=== PATIENT | female | born 1975 | race Hispanic/Latino ===

== ENCOUNTER 2020-05-01 09:32 | Emergency (ER) | payer OTHER ==
[~2020-05-01] VITALS: Ht 154.9 cm; Wt 86.2 kg
[2020-05-01] MEDS ORDERED: HYDROCODONE/APAP 7.5MG-325MG 1 EA TAB PO ONE ×2 (09:45→14:45)
--- NOTE | 2020-05-01 09:58 | Emergency Department Note ---
History of Present Illnes History of Present Illness Chief Complaint: Extremity Trauma/Pain History of Present Illness This is a 45 year old female FELL DOWN STAIRS, WHILE HOLDING ON TO RAILING. HIT RIGHT ANKLE/FOOT ON STAIRS. PAIN WITH PALPATION TO ANKLE, AND TOES. SWELLING, REDNESS TO ANKLE POSITIVE PULSE, COOL TO TOUCH FROM PREVIOUS ICE PACK. Historian: Patient Arrival Mode: Car Additional Treatment CREDIT PORTFOLIO MANAGER: ADVIL X 2, ICEPACK [employer] Required: No Onset (how long ago): hour(s) Location: RIGHT FOOT/ANKLE Quality: PAIN Radiation: Reports non-radiation Severity: severe Onset quality: sudden Timing of current episode: constant Progression: unchanged (2) Chronicity: new Context: Reports trauma/injury Relieving factors: none Exacerbating factors: none Associated symptoms: Reports denies other symptoms Treatments prior to arrival: none Past Medical/Family History Physician Review I have reviewed the patient's past medical and family history. Any updates have been documented here. Past Medical History Recent Fever: No Clinical Suspicion of Infectio: No New/Unexplained Change in Ment: No Past Medical History: Hypertension, Asthma Past Surgical History: None Social History Smoking Cessation: Never Smoker Counseling Performed: No Alcohol Use: None Any Illegal Drug Use: No TB Exposure/Symptoms: No Physically hurt or threatened: No Family History Family history of heart diseas: No Other Any Pre-Existing Lines (PICC,: No Review of Systems Review of Systems Constitutional: Reports no symptoms EENTM: Reports no symptoms Cardiovascular: Reports no symptoms Respiratory: Reports no symptoms Gastrointestinal: Reports no symptoms Genitourinary: Reports no symptoms Musculoskeletal: Reports as per HPI Integumentary: Reports no symptoms Neurological: Reports no symptoms Psychological: Reports no symptoms Endocrine: Reports no symptoms Hematological/Lymphatic: Reports no symptoms Physical Exam Related Data Allergies: Coded Allergies: No Known Allergies (Unverified , 05/01/20) Triage Vital Signs Vital Signs Date Time Temp Pulse Resp B/P (MAP) Pulse Ox O2 Delivery O2 Flow Rate FiO2 05/01/20 09:36 98.1 62 18 126/95 100 Room Air Vital signs reviewed: Yes Physical Exam CONSTITUTIONAL Constitutional: Present well-developed, Present well-nourished HENT HENT: Present normocephalic, Present atraumatic, Present oropharynx clear/moist, Present nose normal HENT L/R: Present left ext ear normal, Present right ext ear normal EYES Eyes: Reports PERRL, Reports conjunctivae normal NECK Neck: Present ROM normal PULMONARY Pulmonary: Present effort normal, Present breath sounds normal CARDIOVASCULAR Cardiovascular: Present regular rhythm, Present heart sounds normal, Present c apillary refill normal, Present normal rate GASTROINTESTINAL Abdominal: Present soft, Present nontender, Present bowel sounds normal GENITOURINARY Genitourinary: Present exam deferred SKIN Skin: Present warm, Present dry MUSCULOSKELETAL Musculoskeletal: Present tenderness (DORSUM RIGHT FOOT & RIGHT ANKLE), Present swelling; Absent deformity NEUROLOGICAL Neurological: Present alert, Present oriented x 3, Present no gross motor or sensory deficits PSYCHOLOGICAL Psychological: Present mood/affect normal, Present judgement normal Results Imaging Imaging results reviewed: Yes Impressions EXAMINATION: FOOT RIGHT COMPLETE INDICATION: Trauma COMPARISON: None FINDINGS: Acute mildly displaced trimalleolar right ankle fracture with associated right ankle soft tissue swelling. Fracture lines extend to the joint space. Associated ankle joint effusion. No additional fractures identified in the right foot. IMPRESSION: Acute mildly displaced trimalleolar right ankle fracture with intra-articular extension and associated soft tissue swelling and ankle joint effusion. Signed by: Brayden Shah MD on 05/01/2020 11:07 AM Assessment & Plan Medical Decision Making MDM FALL, WITH RIGHT FOOT/ANKLE SWELLING AND TENDERNESS - CHECK XRAYS R/O FX Reassessment Reassessment SPLINT APPLIED, DC HOME, NWB/CRUTCHES, RICE, TYL #3, IBUPROFEN OTC, F/U DR JUSTIN Assessment & Plan Final Impression: (1) Trimalleolar fracture of right ankle Depart Disposition: HOME, SELF-CARE Last Vital Signs Date Time Temp Pulse Resp B/P (MAP) Pulse Ox O2 Delivery O2 Flow Rate FiO2 05/01/20 09:36 98.1 62 18 126/95 100 Room Air Medications in the ED Acetaminophen/ Hydrocodone Bitart 1 ea NOW ONCE PO Last administered on 05/01/20at 09:52; Admin Dose 1 EA; Start 05/01/20 at 09:45; Stop 05/01/20 at 09:51; Status DC JAH ARNOLD MD May 01, 2020 09:58
--- OUTSIDE RECORDS SUMMARY | 2020-05-01 10:12 | XMS REPORT | Continuity of Care Document ---
Author Author [facility] t Organization [facility] Address [address] [place] [address] Phone Unavailable Care Team Providers Care Neonatologist Name Role Phone Unavailable Unavailable Payers Payer Name Policy Type Policy Number Effective Date Expiration Date S ource Problems This patient has no known problems. Allergies, Adverse Reactions, Alerts Allergy Name Allergy Type Status Severity Reaction(s) Onset Date Inacti ve Date Treating Clinician Comments Source No Known Contrast Allergies DA Active 2008-06-08 00:00: 00 [facility] No Known Drug Allergies DA Active U 2008-06-08 00:00:00 [facility] No Known Food Allergies DA Active U 2008-06-08 00:00:00 [facility] No Known Other Allergies DA Active 2008-06-08 00:00:00 [facility] Medications This patient has no known medications. Procedures This patient has no known procedures. Results Test Description Test Time Test Comments Results Result Comments Source SURGICAL SPECIMENS 2018-06-28 12:06:00 RUN DATE: 06/28/18 [facility] *LIVE* PAGE 1 RUN TIME: 1206 Specimen Inquiry RUN USER: INTERFACE PATIENT: JIA REN LOC: [facility] U #: [id number] AGE/SX: 43/F ROOM: RE06/19/[facility] DR: Ariana Mayorga : 73 BED: DIS: STATUS: DEP REF TLOC: SPEC #: [id number] RECD: 06/20/18 STATUS: MEHDI RANDLE #: [id number] CLAUDIA: 06/20/18 [facility] DR: Ariana Mayorga MD ENTERED: 06/27/18 SP TYPE: SURG SPEC OTHR DR: ORDERED: GM LEVEL 4 CODES: [id number] - BREAST, NOS PROCEDURES: GM LEVEL 4 (Incomplete) TISSUES: 1. BREAST, NOS - Breast, right, 12:00, 6 cm FN, core bx. 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 GROSS AND MICROSCOPIC GROSS EXAMINATION: Location: Breast, right, 12:00, 6 cm FN, core bx.. Dimensions and appearance: 1.3 x 0.3 x 0.3 cm, fibrofatty. Sections: Entirely submitted. Received in formalin are the above designated biopsies. They are composed of yellow-white fibrofatty tissue. They are submitted for microscopic examination as indicated above. MICROSCOPIC EXAMINATION: Sections of the "Breast, right, 12:00, 6 cm FN, core bx." reveal changes of a fibroadenoma. No definite evidence of ADH, DCIS, LCIS, or invasive carcinoma is seen in these sections. POST-OP DIAGNOSIS ULTRACLIP-coil PRE-OP DIAGNOSIS Indeterminate mass 1.6 cm exclude cancer Signed SIGNATURE ON FILE Stacy Alcantar MD 06/28/18 1206 END OF REPORT
--- NOTE | 2020-05-01 10:38 | Diagnostic Imaging Report ---
EXAMINATION: FOOT RIGHT COMPLETE INDICATION: Trauma COMPARISON: None FINDINGS: Acute mildly displaced trimalleolar right ankle fracture with associated right ankle soft tissue swelling. Fracture lines extend to the joint space. Associated ankle joint effusion. No additional fractures identified in the right foot. IMPRESSION: Acute mildly displaced trimalleolar right ankle fracture with intra-articular extension and associated soft tissue swelling and ankle joint effusion. Signed by: Brayden Shah MD on 05/01/2020 10:35 AM
--- NOTE | 2020-05-01 12:17 | NUR ---
Ankle stirrup and reinforced posterior splint applied to R lower leg. Sensatio intact to toes, cap refill <3 seconds.
--- NOTE | 2020-05-01 12:28 | NUR ---
Dr. Bowers at bedside.
[2020-05-01 13:21] VITALS: BP 133/82
[2020-05-01] MEDS ORDERED: HYDROCODONE/APAP 7.5MG-325MG 1 EA TAB ONE (14:42)
--- NOTE | 2020-05-01 14:44 | Diagnostic Imaging Report ---
TECHNIQUE: Computed tomography imaging of the RIGHT ANKLE was performed WITHOUT injected contrast. Dose modulation, iterative reconstruction, and/or weight based adjustment of the mA/kV was utilized to reduce the radiation dose to as low as reasonably achievable. COMPARISON: None available. HISTORY: Fall, pain FINDINGS: Multiple fractures: * Intra-articular pilon fracture of the posterior distal tibia with approximately 2 mm displacement at the articular surface * Oblique fracture of the distal fibula with 3 mm displacement * Transverse fracture of the medial malleolus with 4 mm displacement Soft tissue swelling of the ankle. The tendons are in normal anatomic position. IMPRESSION: Fractures of the distal tibia and fibula as above Signed by: Dr. Ramy Devine M.D. on 05/01/2020 2:40 PM
--- NOTE | 2020-05-01 19:11 | NUR ---
ORTHOPEDICS CONSULTATION 45 year old community ambulating female presents to the ED after a mechanical fall down the stairs with complaints of only right ankle pain and an inability to ambulate. No numbness, paresthesias or loss of distal motor function. No pain in any other extremity PMdHx: Asthma, HTN Allergies: NKDA SurgHx: Novasure FamHx: Non-contributory SocHx: Neg Tob, EtOH & Drugs AVSS Right Ankle - No open lesions or sores TTP of medial & lateral malleolus Swollen Motor+ EHL, EDL, FHL, FDL Sensation grossly intact Pulses + DP, Post tib Compartments soft Xrays & CT Comminuted Intra-articular fracture of the distal tibia & fibula 45 year old female with Right Pilon & Distal Fibula Fracture -Nurse splinted fracture -Analgesics PRN -NWB RLE -Rest, Ice & Elevation -Follow up with me or Dr. Edgar Cedillo within 1 week to coordinate surgical intervention -Patient aware and amendable to plan. All questions answered. Thank you for the consultation Татьяна Pereira,
[2020-05-05] MEDS ORDERED: TYLENOL # 31 EA PO (16:07)
[2020-05-05] MEDS ORDERED: LISINOPRIL10 MG PO (16:07)
== END 2020-05-01 14:50 | disposition home or self-care (01) ==
LOC: ER 09:43
DX: S82.851A Displaced trimalleolar fracture of right lower leg, initial encounter for closed fracture (principal); W10.8XXA Fall (on) (from) other stairs and steps, initial encounter; Y93.01 Activity, walking, marching and hiking; Y92.008 Other place in unspecified non-institutional (private) residence as the place of occurrence of the external cause; I10 Essential (primary) hypertension; J45.909 Unspecified asthma, uncomplicated
CPT/HCPCS: 99284

== ENCOUNTER → 2020-05-08 | Day surgery (SDC) | payer OTHER ==
[~2020-05-08] MED LIST: BUPIVACAINE HCL 0.5% INJ 30 ML VIAL INJ ONE; CEFAZOLIN SOD 1 GM/NS 50ML 100 ML IV ONE; DEXAMETHASONE SOD PHOS INJ 4 MG/ML VIAL ONE; EPINEPHRINE HCL 1:1000 1ML 1 MG/ML AMP ONE; HYDROMORPHONE 1MG/1ML INJ ONE; IBUPROFEN 800MG/ 200ML 200 ML IV ONE; LIDOCAINE HCL 2% LOCAL INJ 5 ML SDV VIAL INJ ONE; LISINOPRIL10 MG PO; ONDANSETRON HCL INJ 2MG/ML 2ML 2 MG/ML VIAL ONE; PROPOFOL IV EMULSION 10 MG/ML 20 ML VIAL ONE; ROCURONIUM BROMIDE 10 MG/ML 5ML VIAL IV ONE; SEVOFLURANE INHAL SOLN 250 ML PEN BTL ONE; TYLENOL # 31 EA PO; VANCOMYCIN HCL 1 GM VIAL ONE
--- NOTE | 2020-05-08 18:33 | NUR ---
PREOPERATIVE DIAGNOSIS:Right Distal Tibia Pilon Fracture & Distal Fibula Fracture POSTOPERATIVE DIAGNOSIS:Right Distal Tibia Pilon Fracture & Distal Fibula Fracture PROCEDURE PERFORMED: Open reduction and internal fixation of Right Distal Tibia Pilon Fracture & Distal Fibula Fracture Flouroscopic Interpretation SURGEONS: 1. Edgar Cedillo MD, 2. Татьяна Pereira DO ANESTHESIA: General. TOURNIQUET TIME: 144 minutes. COMPLICATIONS: None. BLOOD LOSS:20 cc INDICATIONS FOR SURGERY: This is 45 year old female who had a mechanical fall and was found to have a displaced right ankle fracture. OPERATIVE PROCEDURE: The patient was taken to the operative room where general anesthesia was successfully introduced. The right ankle was prepped and draped i n standard fashion. The tourniquet was applied about the right upper thigh. An Esmarch tourniquet was used to exsanguinate the ankle. The tourniquet was insufflated to a pressure 300mm for approximately 144 minutes. A medial incision was used and the posterior border of the tibia was seen. The fracture fragments were opened & debrided. After irrigation and adequate reduct ion under flouroscopic interpretation a Eve 6 hole 2.7 mm Plate and screws was used in antiglide fashion to secure the posterior articular fragment. The medial malleolus was exposed with care to avoid the saphenous vessel and nerve. An elevator was used to expose the fracture. The fracture was freed of old hematoma and reduced with a reducing clamp. 1 4.0 Cannulated Screws (40 mm) were used to fixate the medial malleolus. 500 mg of Vancomycin powder was sprinkled over the wound. The medial retinaculum was repaired and the fascia and subcutaneous tissue was closed with vicryl. The skin was closed with nylon. An incision was made over the lateral distal fibula with care was taken to spare overlying nerves and vessels. An elevator was used to expose the fracture. The fracture was freed of old hematoma and reduced with a reducing clamp. A locking Eve Variax 3 hole distal fibula plate was placed on the lateral fibula with the use of 3.5 Non-Locking Screws and 3.5 Locking Screws. Due to la xity of the syndesmosis a syndesmotic screw was placed to maintain reduction. Excellent stability of fracture was achieved. Final fluoroscopy showed a reduction to be anatomic. Stress views were obtained with intraoperative cotton and external rotation tests demonstrating no instability of the syndesmosis. The wound was irrigated with copious amounts of normal saline. Deep tissue was closed with 0 Vicryl with the subcutaneous tissue being closed with 2-0 vicryl. The skin was approximated with 3-0 Monocryl . Dressings with xeroform, 4x4s and ABD were applied. The patient was then placed in a well padded trilaminar splint. She awoke without difficulty and was transferred to the recovery room in stable condition.
[2020-05-08 18:45] VITALS: BP 132/84
== END | disposition home or self-care (01) ==
LOC: OR 10:25
PROVIDERS: ATTEND Orthopaedic Surgery
DX: S82.831A Other fracture of upper and lower end of right fibula, initial encounter for closed fracture (principal); S82.871A Displaced pilon fracture of right tibia, initial encounter for closed fracture; J45.909 Unspecified asthma, uncomplicated; I10 Essential (primary) hypertension; W19.XXXA Unspecified fall, initial encounter; Z01.810 Encounter for preprocedural cardiovascular examination; Z01.812 Encounter for preprocedural laboratory examination; Z11.59 Encounter for screening for other viral diseases
CPT/HCPCS: 27828; 76000; 81025; 93005; C1713 ×13; J0171; J0690; J1100; J1170; J2001; J2405; J2704; J3370; U0002

== ENCOUNTER 2020-06-21 11:10 | Inpatient (IN) | payer OTHER ==
[~2020-06-21] VITALS: Ht 154.9 cm; Wt 88.5 kg
[~2020-06-21 11:10] MED LIST changes: -BUPIVACAINE HCL 0.5% INJ 30 ML VIAL INJ ONE; -CEFAZOLIN SOD 1 GM/NS 50ML 100 ML IV ONE; +CEFEPIME 1GM/NS 0.9% 50 ML 50 ML IV SCH; -DEXAMETHASONE SOD PHOS INJ 4 MG/ML VIAL ONE; -EPINEPHRINE HCL 1:1000 1ML 1 MG/ML AMP ONE; -HYDROMORPHONE 1MG/1ML INJ ONE; -IBUPROFEN 800MG/ 200ML 200 ML IV ONE; -LIDOCAINE HCL 2% LOCAL INJ 5 ML SDV VIAL INJ ONE; -ONDANSETRON HCL INJ 2MG/ML 2ML 2 MG/ML VIAL ONE; -PROPOFOL IV EMULSION 10 MG/ML 20 ML VIAL ONE; -ROCURONIUM BROMIDE 10 MG/ML 5ML VIAL IV ONE; -SEVOFLURANE INHAL SOLN 250 ML PEN BTL ONE; -VANCOMYCIN HCL 1 GM VIAL ONE
[2020-06-21] MEDS ORDERED: ONDANSETRON HCL INJ 2MG/ML 2ML 2 MG/ML VIAL IV STA (11:14)
[2020-06-21] MEDS ORDERED: SODIUM CHLORIDE 0.9% 1000ML 1,000 ML IV STA (11:14)
[2020-06-21] MEDS ORDERED: MORPHINE SULFATE INJ 4 MG/ML INJ 1ML IV PRN ×2 (11:15→15:15)
--- OUTSIDE RECORDS SUMMARY | 2020-06-21 11:41 | XMS REPORT | Continuity of Care Document ---
Author Author [facility] t Organization [facility] Address [address] [place] [address] Phone Unavailable Care Team Providers Care Casting Plug Assembler Name Role Phone Brennen BENITO PCP Mehdi ARNOLD Attphys Unavailable Payers Payer Name Policy Type Policy Number Effective Date Expiration Date Ana Smith o [id number] 2016 00:00:00 [facility] Problems Condition Name Condition Details Condition Category Status Onset Date Resolution Date Last Treatment Date Treating Clinician Comments Source Trimalleolar fracture of right ankle Problem Active [facility] Allergies, Adverse Reactions, Alerts Allergy Name Allergy Type Status Severity Reaction(s) Onset Date Inacti ve Date Treating Clinician Comments Source No Known Contrast Allergies DA Active U 2008-06-08 00:00: 00 [facility] No Known Drug Allergies DA Active U 2008-06-08 00:00:00 [facility] No Known Food Allergies DA Active U 2008-06-08 00:00:00 [facility] No Known Other Allergies DA Active U 2008-06-08 00:00:00 [facility] Social History Social Habit Start Date Stop Date Quantity Comments Source Sex Assigned At 1975 00:00:00 1975 00:00:00 Female [facility] Medications This patient has no known medications. Vital Signs Vital Name Observation Time Observation Value Comments Source Weight 2020-05-01 09:36:00 190 [lb_av] [facility] BMI (Body Mass Index) 2020-05-01 09:36:00 35.9 kg/m2 [facility] Procedures Procedure Date / Time Performed Performing Clinician Sour e CT extremity lower wo contrast 2020-05-01 00:00:00 [facility] Results Test Description Test Time Test Comments Results Result Comments Source CT ANKLE RIGHT WO 2020-05-01 14:30:00 [facility] [address] [address] Patient Name: JIA REN MR #: [id number] : 1975 Age/Sex: 45/F Req #: [id number] Adm Physician: Ordered by: JAH ARNOLD MD Report #: [id number] Location: ER Room/Bed: Procedure: [id number] CT/CT ANKLE RIGHT WO Exam Date: 05/01/20 Exam Time: 1414 REPORT STATUS: Signed TECHNIQUE: Computed tomography imaging of the RIGHT ANKLE was performed WITHOUT injected contrast. Dose modulation, iterative reconstruction, and/or weight based adjustment of the mA/kV was utilized to reduce the radiation dose to as low as reasonably achievable. COMPARISON: None available. HISTORY: Fall, pain FINDINGS: Multiple fractures: * Intra-articular pilon fracture of the posterior distal tibia with approximately 2 mm displacement at the articular surface * Oblique fracture of the distal fibula with 3 mm displacement * Transverse fracture of the medial malleolus with 4 mm displacement Soft tissue swelling of the ankle. The tendons are in normal anatomic position. IMPRESSION: Fractures of the distal tibia and fibula as above Signed by: Dr. Alida Tijerina M.D. on 05/01/2020 2:40 PM Dictated By: ALIDA TIJERINA MD 39 Transcribed By: CHARLOTTE on 05/01/20 144 COPY TO: JAH ARNOLD MD ANKLE 3 + VIEWS RIGHT 2020-05-01 10:56:00 [place] [address] Patient Name: JIA REN MR #: [id number] : 1975 Age/Sex: 45/F Req #: [id number] [facility] Physician: Ordered by: JAH ARNOLD MD Report #: [id number] Location: ER Room/Bed: Procedure: [id number] DX/ANKLE 3 + VIEWS RIGHT Exam Date: 05/01/20 Exam Time: 1010 REPORT STATUS: Signed EXAMINATION: FOOT RIGHT COMPLETE INDICATION: Trauma COMPARISON: None FINDINGS: Acute mildly displaced trimalleolar right ankle fracture with associated right ankle soft tissue swelling. Fracture lines extend to the joint space. Associated ankle joint effusion. No additional fractures identified in the right foot. IMPRESSION: Acute mildly displaced trimalleolar right ankle fracture with intra-articular extension and associated soft tissue swelling and ankle joint effusion. Signed by: Marcelina Shah MD on 05/01/2020 11:07 AM Dictated By: MARCELINA SHAH MD 1107 T ranscribed By: CHARLOTTE on 05/01/20 110 COPY TO: JAH ARNOLD MD FOOT RIGHT COMPLETE 2020-05-01 10:30:00 [place] [address] Patient Name: JIA REN MR #: [id number] : 1975 Age/Sex: 45/F Req #: [id number] Adm Physician: Ordered by: JAH ARNOLD MD Report #: [id number] Location: ER Room/Bed: Procedure: [id number] DX/FOOT RIGHT COMPLETE Exam Date: 05/01/20 Exam Time: 1010 REPORT STATUS: Signed EXAMINATION: FOOT RIGHT COMPLETE INDICATION: Trauma COMPARISON: None FINDINGS: Acute mildly displaced trimalleolar right ankle fracture with associated right ankle soft tissue swelling. Fracture lines extend to the joint space. Associated ankle joint effusion. No additional fractures identified in the right foot. IMPRESSION: Acute mildly displaced trimalleolar right ankle fracture with intra-articular extension and associated soft tissue swelling and ankle joint effusion. Signed by: Marcelina Shah MD on 05/01/2020 10:35 AM Dictated By: MARCELINA SHAH MD 1035 Tra nscribed By: CHARLOTTE on 05/01/20 1035 COPY TO: JAH ARNOLD MD SURGICAL SPECIMENS 2018-06-28 12:06:00 RUN DATE: 06/28/18 [facility] *LIVE* PAGE 1 RUN TIME: 1206 Specimen Inquiry RUN USER: INTERFACE PATIENT: JIA REN LOC: [facility] U #: [id number] AGE/SX: 43/F ROOM: RE06/19/18[facility] DR: Ariana Mayorga : 73 BED: DIS: STATUS: [facility] REF TLOC: SPEC #: [id number] RECD: 06/20/18 STATUS: MEHDI RE #: [id number] CLAUDIA: 06/20/18 [facility] DR: Ariana Mayorga MD ENTERED: 06/27/18 SP TYPE: SURG SPEC OTHR DR: ORDERED: GM LEVEL 4 CODES: [id number] - BREAST, NOS PROCEDURES: GM LEVEL 4 (Incomplete) TISSUES: 1. BREAST, NOS - Breast, right, 12:00, 6 cm FN, core bx. FINAL DIAGNOSIS Breast, ri ght, 12:00, 6 cm FN, core bx.: Fibroadenoma. [...]
[2020-06-21 12:04] LABS: BASOPHILS % 0.2 % (0.0-1.0); EOSINOPHILS # (AUTO) 0.4 (0.0-0.4); EOSINOPHILS % 3.8 % (0.0-6.0); HEMATOCRIT 39.8 % (34.2-44.1); HEMOGLOBIN 12.7 g/dL (12.0-16.0); LYMPHOCYTES # (AUTO) 0.2 (1.0-3.2); LYMPHOCYTES % 1.8 % (18.0-39.1); MEAN CORPUSCULAR HEMOGLOBIN 28.2 pg (28-32); MEAN CORPUSCULAR HGB CONC 31.9 g/dL (31-35); MEAN CORPUSCULAR VOLUME 88.2 fL (81-99); MONOCYTES # (AUTO) 0.3 (0.2-0.8); NEUTROPHILS # (AUTO) 8.7 (2.1-6.9); NEUTROPHILS % 90.7 % (38.7-80.0); PLATELET COUNT 246 x10e3/uL (140-360); RED BLOOD COUNT 4.51 x10e6/uL (3.6-5.1); RED CELL DISTRIBUTION WIDTH 13.8 % (11.7-14.4)
[2020-06-21 12:20] LABS: CLARITY,URINE SL CLOUDY (CLEAR); COLOR,URINE YELLOW (YELLOW)
[2020-06-21 12:21] LABS: LEUKOCYTE ESTERASE ,URINE TRACE (NEGATIVE); NITRITE,URINE NEGATIVE (NEGATIVE)
[2020-06-21 12:22] LABS: KETONES,URINE 1+ (NEGATIVE); PROTEIN,URINE DIPSTICK 2+ (NEGATIVE)
[2020-06-21 12:23] LABS: ALANINE AMINOTRANSFERASE 488 IU/L (0-55); ALBUMIN 3.7 g/dL (3.5-5.0); ALBUMIN/GLOBULIN RATIO 1.1 (0.8-2.0); ALKALINE PHOSPHATASE 196 IU/L (40-150); ANION GAP 18.1 mmol/L (8-16); BILIRUBIN,URINE LARGE (NEGATIVE); BLOOD UREA NITROGEN 13 mg/dL (7-26); BUN/CREATININE RATIO 16 (6-25); CALCIUM 9.6 mg/dL (8.4-10.2); CARBON DIOXIDE 22 mmol/L (22-29); CHLORIDE 100 mmol/L (98-107); CREATINE KINASE 38 IU/L (29-168); CREATININE, SERUM 0.79 mg/dL (0.57-1.11); EST GLOMERULAR FILTRATION RATE > 60 ML/MIN (60-); GLUCOSE 170 mg/dL (74-118); POTASSIUM 3.1 mmol/L (3.5-5.1); SODIUM 137 mmol/L (136-145); URINE UROBILINOGEN 8 mg/dL (0.2 - 1)
[2020-06-21 12:24] LABS: PREGNANCY TEST, URINE NEGATIVE (NEGATIVE)
[2020-06-21 12:32] LABS: RBC,URINE 0-5 /HPF (0-5)
[2020-06-21 12:33] LABS: BACTERIA,URINE RARE /HPF; EPITHELIAL CELLS,URINE FEW /LPF
--- NOTE | 2020-06-21 12:50 | Emergency Department Note ---
History of Present Illnes History of Present Illness Chief Complaint: Flank Pain History of Present Illness This is a 45 year old female arrives to the ED with complaints of dysur ia, fever nausea and worsening back pain. Patient states she was diagnosed with UTI and started Macrobid of her symptoms are worsening. . Chief Complaint Comment PT STATES ON MONDAY SHE WENT TO SEE HER PCP D/T BURNING W/URINATION AND WAS DIAGNOSED WITH UTI & PRESCRIBED NITROFURANTOIN. PT STTES THAT SINCE MONDAY, SHE HAS STILL BEEN HAVING BILATERAL FLANK PAIN, CHILLS, AND NAUSEA. Historian: Patient, Significant Other Arrival Mode: Car Severity: mild Timing of current episode: constant Progression: worsening Chronicity: new Relieving factors: none Exacerbating factors: none Past Medical/Family History Physician Review I have reviewed the patient's past medical and family history. Any updates have been documented here. Past Medical History Recent Fever: Yes Clinical Suspicion of Infectio: No New/Unexplained Change in Ment: No Past Medical History: Hypertension, Asthma Past Surgical History: None Other Surgery: PT HAD RIGHT TIBIA SURGERY 05/08/2020 HERE AT [facility] Social History Smoking Cessation: Never Smoker Counseling Performed: No Alcohol Use: None Any Illegal Drug Use: No Physically hurt or threatened: No Other Any Pre-Existing Lines (PICC,: No Physical Exam Related Data Allergies: Coded Allergies: No Known Allergies (Unverified , 05/01/20) Triage Vital Signs Vital Signs Date Time Temp Pulse Resp B/P (MAP) Pulse Ox O2 Delivery O2 Flow Rate FiO2 06/21/20 11:20 98.5 120 16 105/47 100 Room Air Physical Exam CONSTITUTIONAL HENT EYES NECK PULMONARY CARDIOVASCULAR GASTROINTESTINAL GENITOURINARY SKIN MUSCULOSKELETAL NEUROLOGICAL PSYCHOLOGICAL Results Laboratory Laboratory Laboratory Tests Test 06/21/20 11:30 Assessment & Plan Medical Decision Making MDM 45-year-old female arrived to the ED complains of fever, nausea bilateral flank pain. Patient clinically appeared to be presenting with acute pyelonephritis and was treated as such with fluid resuscitation and IV antibiotics. Patient noted marked transaminitis. Patient's CT scan was negative for any acute hepatic, biliary or pancreatic process. Patient's CT showed questionable vaginal cyst, however, patient has no findings in this regard. Patient admitted for trending of liver enzymes, IV antibiotics and fluid resuscitation. PACKAGE DYER- Dr. Huntley consulted Concerns of possible impending severe sepsis noted 1300, blood cultures obtained lactic acid unremarkable Assessment & Plan Final Impression: (1) Pyelonephritis Depart Disposition: ADMITTED Last Vital Signs Date Time Temp Pulse Resp B/P (MAP) Pulse Ox O2 Delivery O2 Flow Rate FiO2 06/21/20 11: 98.5 120 16 105/47 100 Room Air Home Meds Reported Medications Lisinopril (LISINOPRIL) 10 Mg Tablet, 10 MG PO HS, TAB 05/05/20 Acetaminophen/Codeine* (TYLENOL # 3*) 1 Ea Tab, 1 TAB PO PRN 05/05/20 Medications in the ED Ondansetron HCl 4 mg NOW STAT IV Last administered on 06/21/20at 11:45; Admin Dose 4 MG; Start 06/21/20 at 11:14; Stop 06/21/20 at 11:31; Status DC Morphine Sulfate 4 mg ONCE PRN IV SEVERE PAIN (7-10) Last administered on 06/21/20at 11:45; Admin Dose 4 MG; Start 06/21/20 at 11:15; Stop 06/28/20 at 11:14 Sodium Chloride 1,000 ml @ 0 mls/hr Q0M STAT IV Last administered on 06/21/20at 11:45; Admin Dose 999 MLS/HR; Start 06/21/20 at 11:14; Stop 06/21/20 at 11:18; Status DC LATASHA URIBE DO Jun 21, 2020 12:51
--- NOTE | 2020-06-21 13:50 | Diagnostic Imaging Report ---
EXAM: CT Abdomen and Pelvis WITH contrast INDICATION: Nausea vomiting and fever. COMPARISON: None. TECHNIQUE: Abdomen and pelvis were scanned utilizing a multidetector helical scanner from the lung base to the pubic symphysis after administration of IV contrast. Coronal and sagittal reformations were obtained. Routine protocol was performed. Scan was performed when during portal venous phase. IV CONTRAST: 100 mL of Isovue 370 ORAL CONTRAST: None COMPLICATIONS: None RADIATION DOSE: Total DLP: ... mGy*cm Estimated effective dose: (DLP x 0.015 x size factor) mSv CTDIvol has been reviewed. It is below the limits set by the Radiation Protocol Committee (RPC). Dose modulation, iterative reconstruction, and/or weight based adjustment of the mA/kV was utilized to reduce the radiation dose to as low as reasonably achievable. FINDINGS: LINES and TUBES: None. LOWER THORAX: Unremarkable HEPATOBILIARY: No focal hepatic lesions. No biliary ductal dilation. GALLBLADDER: No radio-opaque stones or sludge. No wall thickening. SPLEEN: No splenomegaly. PANCREAS: No focal masses or ductal dilatation. ADRENALS: No adrenal nodules KIDNEYS/URETERS: Kidneys enhance symmetrically. No hydronephrosis. No cystic or solid mass lesions. No stones. GI TRACT: No abnormal distention, wall thickening, or evidence of bowel obstruction. Appendix is normal. PELVIC ORGANS/BLADDER: Unremarkable. LYMPH NODES: No lymphadenopathy. VESSELS: Unremarkable. PERITONEUM / RETROPERITONEUM: No free air or fluid. BONES: Unremarkable. SOFT TISSUES: 1.7 x 1.0 cm cystic hypodense structure in the central lower pelvis, below the level of the symphysis with adjacent focus of hyperattenuation (series 2 image 80-82). There is a fat-containing umbilical hernia. IMPRESSION: 1. No acute abdominopelvic abdomen was identified. 2. 1.7 x 1.0 cm cystic hypodense structure in the central lower pelvis, below the level of the symphysis with adjacent focus of hyperattenuation (series 2 image 80-82). Differential diagnosis includes urethral diverticulum, vaginal wall cyst, [place] gland abscess/cyst or ectopic ureterocele. SENIOR PRODUCT ENGINEER follow-up can be considered for further evaluation and management. Signed by: Glo León MD on 06/21/2020 1:47 PM
[2020-06-21] MEDS ORDERED: CEFEPIME 1GM/NS 0.9% 50 ML 50 ML IV ONE (14:00)
[2020-06-21] MEDS ORDERED: CEFTRIAXONE SOD 1 GM/NS 50 ML 50 ML IV ONE (14:00)
[2020-06-21] MEDS ORDERED: CEFEPIME 1GM/NS 0.9% 50 ML 50 ML IV STA (14:52)
[2020-06-21] MEDS ORDERED: ONDANSETRON HCL INJ 2MG/ML 2ML 2 MG/ML VIAL IV PRN (15:00)
--- OUTSIDE RECORDS SUMMARY | 2020-06-21 15:21 | XMS REPORT | Continuity of Care Document ---
Author Author [facility] t Organization [facility] Address [address] [place] [address] Phone Unavailable Care Team Providers Care Play Reader Name Role Phone Brennen BENITO PCP Ana URIBE Attphys Unavailable Mehdi ARNOLD Attphys Unavailable Payers Payer Name Policy Type Policy Number Effective Date Expiration Date Ana Smith o [id number] 2016 00:00:00 [facility] Problems Condition Name Condition Details Condition Category Status Onset Date Resolution Date Last Treatment Date Treating Clinician Comments Source Trimalleolar fracture of right ankle Problem Active [facility] Allergies, Adverse Reactions, Alerts Allergy Name Allergy Type Status Severity Reaction(s) Onset Date Inacti ve Date Treating Clinician Comments Source No Known Contrast Allergies DA Active U 2008-06-08 00:00: 00 [facility] No Known Drug Allergies DA Active U 2008-06-08 00:00:00 [facility] No Known Food Allergies DA Active U 2008-06-08 00:00:00 [facility] No Known Other Allergies DA Active U 2008-06-08 00:00:00 [facility] Social History Social Habit Start Date Stop Date Quantity Comments Source Sex Assigned At 1975 00:00:00 1975 00:00:00 Female [facility] Medications This patient has no known medications. Vital Signs Vital Name Observation Time Observation Value Comments Source Weight 2020-05-01 09:36:00 190 [lb_av] [facility] BMI (Body Mass Index) 2020-05-01 09:36:00 35.9 kg/m2 [facility] Procedures Procedure Date / Time Performed Performing Clinician [facility] e CT extremity lower wo contrast 2020-05-01 00:00:00 [facility] Results Test Description Test Time Test Comments Results Result Comments Source CT ABDOMEN/PELVIS W 2020-06-21 13:37:00 [facility] [address] [address] Patient Name: JIA REN MR #: [id number] : 1975 Age/Sex: 45/F Req #: [id number] Adm Physician: Ordered by: LATASHA URIBE DO Report #: [id number] Location: ER Room/Bed: Procedure: [id number] CT/CT ABDOMEN/PELVIS W Exam Date: 06/21/20 Exam Time: 1250 REPORT STATUS: Signed EXAM: CT Abdomen and Pelvis WITH contrast INDICATION: Nausea vomiting and fever. COMPARISON: None. TECHNIQUE: Abdomen and pelvis were scanned utilizing a multidetector helical scanner from the lung base to the pubic symphysis after administration of IV contrast. Coronal and sagittal reformations were obtained. Routine protocol was performed. Scan was performed when during portal venous phase. IV CONTRAST: 100 mL of Isovue 370 ORAL CONTRAST: None COMPLICATIONS: None RADIATION DOSE: Total DLP: ... mGy*cm Estimated effective dose: (DLP x 0.015 x size factor) mSv CTDIvol has been reviewed. It is below the limits set by the Radiation Protocol Committee (RPC). Dose modulation, iterative reconstruction, and/or weight based adjustment of the mA/kV was utilized to reduce the radiation dose to as low as reasonably achievable. FINDINGS: LINES and TUBES: None. LOWER THORAX: Unremarkable HEPATOBILIARY: No focal hepatic lesions. No biliary ductal dilation. GALLBLADDER: No radio-opaque stones or sludge. No wall thickening. SPLEEN: No splenomegaly. PANCREAS: No focal masses or ductal dilatation. ADRENALS: No adrenal nodules KIDNEYS/URETERS: Kidneys enhance symmetrically. No hydronephrosis. No cystic or solid mass lesions. No stones. GI TRACT: No abnormal distention, wall thickening, or evidence of bowel obstruction. Appendix is normal. PELVIC ORGANS/BLADDER: Unremarkable. LYMPH NODES: No lymphadenopathy. VESSELS: Unremarkable. PERITONEUM / RETROPERITONEUM: No free air or fluid. BONES: Unremarkable. SOFT TISSUES: 1.7 x 1.0 cm cystic hypodense structure in the central lower pelvis, below the level of the symphysis with adjacent focus of hyperattenuation (series 2 image 80-82). There is a fat- containing umbilical hernia. IMPRESSION: 1. No acute abdominopelvic abdomen was identified. 2. 1.7 x 1.0 cm cystic hypodense structure in the central lower pelvis, below the level of the symphysis with adjacent focus of hyperattenuation (series 2 image 80-82). Differential diagnosis includes urethral diverticulum, vaginal wall cyst, [place] gland abscess/cyst or ectopic ureterocele. TAKE DOWN INSPECTOR follow-up can be considered for further evaluation and management. Signed by: Elida Vargas MD on 06/21/2020 1:47 PM Dictated By: ELIDA VARGAS MD 45 Transcribed By: CHARLOTTE on 06/21/201346 COPY TO: LATASHA URIBE DO CT ANKLE RIGHT WO 2020-05-01 14:30:00 [address] [place] [address] Patient Name: JIA REN MR #: [id number] : 1975 Age/Sex: 45/F Req #: [id number] Adm Physician: Ordered by: JAH ARNOLD MD Report #: [id number] Location: ER Room/Bed: Procedure: [id number] CT/CT ANKLE RIGHT WO Exam Date: 05/01/20 [...] 2:40 PM Dictated By: ALIDA TIJERINA MD 1440 Transcribed By: CHARLOTTE on 05/01/20 1440 COPY TO: JAH ARNOLD MD ANKLE 3 + VIEWS RIGHT 2020-05-01 10:56:00 [address] [address] Patient Name: JIA REN MR #: [id number] : 1975 Age/Sex: 45/F Req #: [id number] Adm Physician: Ordered by: JAH ARNOLD MD Report #: [id number] Location: ER Room/Bed: Procedure: [id number] DX/ANKLE 3 + VIEWS RIGHT Exam Date: [...] on 05/01/2020 11:07 AM Dictated By: MARCELINA SAHH MD 06 T ranscribed By: CHARLOTTE on 05/01/201106 COPY TO: JAH ARNOLD MD FOOT RIGHT COMPLETE 2020-05-01 10:30:00 [place] [address] Patient Name: JIA REN MR #: [id number] : 1975 Age/Sex: 45/F Req #: [id number] Adm Physician: Ordered by: JAH ARNOLD MD Report #: [id number] Location: ER Room/Bed: Procedure: [id number] DX/FOOT RIGHT COMPLETE Exam Date: 05/01/20 Exam [...] SURGICAL SPECIMENS 2018-06-28 12:06:00 RUN DATE: 06/28/18 [facility] *LIVE* PAGE 1 RUN TIME: 1206 Specimen Inquiry RUN USER: INTERFACE PATIENT: JIA REN LAI LOC: [facility] U #: [id number] AGE/SX: 43/F ROOM: RE06/19/18REG DR: Ariana Mayorga : [birth year] BED: DIS: STATUS: DEP REF TLOC: SPEC #: [id number] RECD: 06/20/18 STATUS: MEHDI RANDLE #: [id number] CLAUDIA: 06/20/[address] [facility] [address]: Ariana Mayorga MD ENTERED: 06/27/18 SP TYPE: SURG SPEC OTHR DR: ORDERED: GM LEVEL 4 CODES: [id number] - BREAST, NOS PROCEDURES: GM LEVEL 4 [...] SIGNATURE ON FILE Stacy Alcantar MD 06/28/18 [id number] END OF REPORT
--- NOTE | 2020-06-21 15:24 | NUR ---
MD ORDERED TO GIVE CEFEPIME TOMORROW RATHER THAN TODAY DUE TO PT ALREADY RECEIVED ROCEPHIN WHICH IS SAME CLASS OF DRUGS PER PHARMACY.
[2020-06-21] MEDS: SODIUM CHLORIDE 0.9% 1000ML 1,000 ML IV SCH ×2 (15:41→23:00)
[2020-06-21] MEDS ORDERED: IOPAMIDOL 370 MG/ML 200 ML INFUS..BTL INJ ONE (16:54)
[2020-06-21] MEDS ORDERED: SODIUM CHLORIDE 0.9% 50ML 50 ML ONE (16:54)
--- NOTE | 2020-06-21 17:18 | Diagnostic Imaging Report ---
EXAM: Limited Abdominal Ultrasound (right upper quadrant) INDICATION: Right upper quadrant abdominal pain. COMPARISON: Same day CT abdomen/pelvis. TECHNIQUE: Transverse and longitudinal images of the upper abdomen were obtained. FINDINGS: Liver: Size: 15.9 cm in the right midclavicular line, normal Appearance: Normal echogenicity, smooth contour Mass: No focal masses Gallbladder: Stones/Sludge: None Wall: 0.3 cm Appearance: No pericholecystic fluid or hydrops. Sonographic Patel's Sign: Negative Bile Ducts: Intrahepatic Ducts: No dilatation Extrahepatic Ducts: Common bile duct measures 0.3 cm, no dilatation Pancreas: Not visualized due to overlying bowel gas. Right Kidney: Size: 9.8 x 4.2 x 5.3 cm Echogenicity: Normal Parenchymal thickness: Normal Collecting System: No hydronephrosis Stone: None Cyst/Mass: None Vessels: Aorta: Not visualized due to overlying bowel gas. Inferior Vena Cava: Visualized portions are normal Main Portal Vein: 0.7 cm, normal size with hepatopetal flow. Free Fluid: No ascites or pleural effusion IMPRESSION: Normal abdominal ultrasound. Signed by: Glo León MD on 06/21/2020 5:14 PM
[2020-06-21 17:28] VITALS: BP 104/71
[2020-06-21 17:32] VITALS: BP 104/71
[2020-06-21] MEDS ORDERED: BREO ELLIPTA 11 EACH INH (17:39)
[2020-06-21] MEDS ORDERED: NITROFURANTOIN100 MG PO (17:40)
[2020-06-21] MEDS ORDERED: MELATONIN3 MG PO (17:41)
[2020-06-21 20:10] VITALS: BP 109/71
[2020-06-21 20:34] VITALS: BP 109/71
[2020-06-21 21:00] VITALS: BP 109/71
[2020-06-21] MEDS ORDERED: POTASSIUM CHLORIDE 20 MEQ TAB CR PO STA (23:08)
[2020-06-21] MEDS ORDERED: NON-FORMULARY MEDICATION (Fluticasone/Vilanterol (Breo Ellipta 100-25 Mcg INH) 1 INH) INH PRN (23:15)
[2020-06-21] MEDS ORDERED: MELATONIN 5 MG TABLET PO PRN (23:15)
[2020-06-21] MEDS ORDERED: DOCUSATE SODIUM 100 MG CAP PO PRN (23:15)
[2020-06-21] MEDS ORDERED: TRAMADOL HCL 50 MG TAB PO PRN (23:30)
[2020-06-22] VITALS (10 sets, daily range): BP systolic 100–129; BP diastolic 61–90
--- NOTE | 2020-06-22 01:51 | History and Physical ---
CHIEF COMPLAINT: Dysuria and flank pain. HISTORY OF PRESENT ILLNESS: A 45-year-old female, who recently had a right lower extremity ORIF performed early in May of 2020, having a distal tibia-fibula of the right lower extremity ORIF, presents now with flank pain and dysuria. The patient reports having episodic fever at home, generalized weakness and malaise. Denies any chest pain or any palpitations. No sick contacts. No exposure to COVID. The patient is seen and evaluated at bedside on the medical floor. She is currently doing well with no other issues at this time. REVIEW OF SYSTEMS: Pertinent positives; flank pain, episodic fever, dysuria. The rest of 14-point review of systems have been reviewed with the patient and are negative. ALLERGIES: NO KNOWN DRUG ALLERGIES. HOME MEDICATIONS: Lisinopril, Breo, melatonin. PAST MEDICAL HISTORY: Hypertension. PAST SURGICAL HISTORY: Recent tubia-fibula right lower extremity ORIF. FAMILY HISTORY: Hypertension and diabetes. SOCIAL HISTORY: No drugs. No alcohol. Does not smoke. Good social support. PHYSICAL EXAMINATION: VITAL SIGNS: Temperature is 97.7, pulse 85, respiratory rate is 16. Blood pressure is 109/71, pulse ox 100% on room air. GENERAL: Not in acute distress. Alert and oriented x3. Cooperative on exam. PULMONARY: Clear to auscultation bilaterally. No wheezing, rales, or rhonchi. No crackles appreciated. CARDIOVASCULAR: Positive S1 and S2. No murmurs, rubs, or gallops appreciated. ABDOMEN: Soft, nondistended, nontender to palpation. Bowel sounds present. MUSCULOSKELETAL: Strength 5/5 throughout. LABORATORY DATA: Show white count 9.5, hemoglobin 12, hematocrit is 39, and platelets of 246. Chemistry; sodium 137, potassium 3.1, chloride 100, bicarb 22, anion gap of 18, BUN is 13, creatinine is 0.79, glucose is 170. Lactic acid is 1.2. Total bilirubin is 1.9, AST 388, ALT 488, alkaline phosphatase 196, lipase of 170. Urinalysis; 2+ protein, 1+ glucose, 1+ ketones, 6-10 wbc's. SEROLOGY: Coronavirus is pending. MICROBIOLOGY: Blood cultures are pending. IMAGING STUDIES: Abdominal ultrasound shows a normal ultrasound and normal liver. Gallbladder shows no sludge. CT abdomen and pelvis, no acute abdominopelvic abdomen. There is a 1.7 x 1 cm cystic hypodense structure in the central lower pelvis. REHAB TECHNICIAN was consulted. IMPRESSION: 1. Acute pyelonephritis with underlying urinary tract infection. 2. Elevated transaminases of unknown etiology. 3. Hypokalemia. 4. Recent status post right lower extremity tibia-fibula open reduction and internal fixation. PLAN: At this time, we will make sure that the urine was sent to the lab for cultures. Blood cultures, IV antibiotics. Lovenox for DVT prophylaxis. Resume same home medications. As for the LFT elevation, GI was consulted. Plan of care discussed with the patient. She is supposed to be nonweightbearing. We will continue to monitor very closely. MD LINDA Urias/MOUNAL /[id number]
[2020-06-22] MEDS: CEFEPIME 1GM/NS 0.9% 50 ML 50 ML IV SCH ×2 (02:15→14:24)
[2020-06-22] MEDS ORDERED: MORPHINE SULFATE INJ 4 MG/ML INJ 1ML IV PRN (03:15)
--- NOTE | 2020-06-22 04:04 | NUR ---
spoke to Schuyler in Radiology regarding the presence of metal plates and screws to patient's right leg and the order for MRCP in the morning. Schuyler stated he will make note and if there are any questions someone will call.
[2020-06-22 06:00] LABS: BASOPHILS % 0.6 % (0.0-1.0); EOSINOPHILS # (AUTO) 0.7 (0.0-0.4); EOSINOPHILS % 12.8 % (0.0-6.0); HEMATOCRIT 31.3 % (34.2-44.1); HEMOGLOBIN 10.1 g/dL (12.0-16.0); LYMPHOCYTES % 17.7 % (18.0-39.1); MEAN CORPUSCULAR HEMOGLOBIN 28.9 pg (28-32); MEAN CORPUSCULAR HGB CONC 32.3 g/dL (31-35); MEAN CORPUSCULAR VOLUME 89.4 fL (81-99); MONOCYTES # (AUTO) 0.5 (0.2-0.8); MONOCYTES % 8.5 % (4.4-11.3); NEUTROPHILS # (AUTO) 3.2 (2.1-6.9); NEUTROPHILS % 59.8 % (38.7-80.0); PLATELET COUNT 199 x10e3/uL (140-360); RED CELL DISTRIBUTION WIDTH 13.8 % (11.7-14.4)
[2020-06-22 06:24] LABS: ALANINE AMINOTRANSFERASE 338 IU/L (0-55); ALBUMIN 2.9 g/dL (3.5-5.0); ALBUMIN/GLOBULIN RATIO 1.1 (0.8-2.0); ALKALINE PHOSPHATASE 163 IU/L (40-150); ANION GAP 12.7 mmol/L (8-16); BLOOD UREA NITROGEN 11 mg/dL (7-26); BUN/CREATININE RATIO 19 (6-25); CARBON DIOXIDE 20 mmol/L (22-29); CHLORIDE 108 mmol/L (98-107); CREATININE, SERUM 0.59 mg/dL (0.57-1.11); EST GLOMERULAR FILTRATION RATE > 60 ML/MIN (60-); GLUCOSE 98 mg/dL (74-118); POTASSIUM 3.7 mmol/L (3.5-5.1); SODIUM 137 mmol/L (136-145)
[2020-06-22 06:38] LABS: AMYLASE 30 U/L (25-125); LIPASE 33 U/L (8-78)
[2020-06-22] MEDS ORDERED: GADOBENATE DIMEGLUMINE 1 ML IV ONE (09:21)
[2020-06-22] MEDS ORDERED: SODIUM CHLORIDE 0.9% 50ML 50 ML ONE (09:21)
--- NOTE | 2020-06-22 11:00 | Diagnostic Imaging Report ---
MRCP (magnetic resonance cholangiopancreatography) HISTORY: Abdominal pain Comparison: CT abdomen and pelvis 06/21/2020 Technique: Multiplanar and multisequence MRI images of the abdomen were obtained without and subsequently following the administration of intravenous gadolinium. Three-dimensional reconstructed images of the biliary tree are also reviewed. FINDINGS: The common bile duct appears normal in caliber. No intrahepatic biliary dilation. No pancreatic ductal dilation. No intrinsic or extrinsic defect is identified within the biliary system. The gallbladder demonstrates no intraluminal defect, wall thickening, or pericholecystic fluid. No mass is identified in the region of the ampulla or pancreatic head. Unremarkable appearance of the liver, pancreas, spleen, adrenal glands, and kidneys. The visualized bowel loops appear normal in caliber. No free fluid or lymphadenopathy is seen within the abdomen. Impression: Unremarkable MRCP. Signed by: Avni Abebe MD on 06/22/2020 10:57 AM
[2020-06-22] MEDS: SODIUM CHLORIDE 0.9% 1000ML 1,000 ML IV SCH (12:15)
--- NOTE | 2020-06-22 13:27 | NUR ---
WOUND CARE INITIAL CONSULT FOR 45 YO FEMALE ADMITTED TO [facility] WITH A PRESENT HX OF PYELONEPHRITIS. MARCY 20 ON CONSERVATIVE PUP STATUS AND INTERVENTIONS SURFACE: REGULAR VISCO . LABS: WBC- 5.41 HGB- 10.1 ALBUMIN: 2.4 AaCL3D-3.9 MICRO: BLOOD CULTURE- PENDING. URINE CULTURE- PENDING. MEDS: CEFEPIME SEE Grecia TAMEZ FOR DOSAGE. IMAGING: SKIN ASSESSMENT COMPLETE, PATIENT PRESENTS WITH 1)HEALING SURGICAL INCISION TO RIGHT MEDIAL ANKLE; MEASURING 2CM X 0.1 CM. 100% COVERED IN ESCHAR; NO DRAINAGE; NO S/S OF INFECTION NOTED. 2)HEALED SURGICAL INCISION TO RIGHT LATERAL ANKLE; MEASURING 6 CM. NO DRAINAGE PRESENT. RECOMMENDATIONS: NURSING TO CLEAN RIGHT MEDIAL ANKLE INCISION WITH NORMAL SALINE, PAT DRY WITH 4X4 GAUZE, BACITRACIN OINTMENT TO ESCHAR, COVER WITH ALLEVYN FOAM; PROTECT HEALED SURGICAL INCISION TO RIGHT LATERAL ANKLE WITH A 4X4 GAUZE, SECURE WITH LEELEE BAND AND APPLY POST OP BOOT DAILY. NURSING TO CONTINUE TO MONITOR PATIENT AND KEEP SKIN CLEAN AND FREE FROM STOOL OR IRRITATING MOISTURE AND CONTINUE TO FOLLOW CONSERVATIVE PUP INTERVENTIONS DAILY. NURSING TO CONTINUE ENCOURAGE PT TO REPOSITION SIDE TO SIDE EVERY TWO HOURS AND NEEDED. NURSING TO APPLY REGULAR VISCO PRESSURE MATTRESS. NURSING TO CONTINUE TO OFFLOAD FEET AND HEELS AT ALL TIMES WITH PILLOW SUSPENSION WHEN IN BED. NURSING TO CONTINUE TO ASSIST WITH PT NUTRITIONAL SUPPLEMENTS TO ENSURE PROPER REQUIREMENTS FOR HEALING. NURSING TO RE- CONSULT WOUND CARE NEEDED. Addendum: 06/22/20 at 1330 by Haritha Araiza RN Amended: Links added.
[2020-06-22] MEDS ORDERED: ENOXAPARIN SOD INJ 40 MG/0.4 ML SYR SC SCH (17:00)
--- NOTE | 2020-06-22 19:33 | NUR ---
Received pt in bed awake and alert. No c/o at this time, no s/sx of acute distress noted. Pt bed in low and locked position with call light and personal items within reach. W/C next to bed, pt instructed to call for assistance, verbalized understanding. Bedside report completed, IVF infusing no diff. Will cont to mon pt.
[2020-06-22] MEDS ORDERED: LISINOPRIL 10 MG TAB PO SCH (21:00)
[2020-06-23] MEDS: SODIUM CHLORIDE 0.9% 1000ML 1,000 ML IV SCH (01:28)
[2020-06-23] MEDS: CEFEPIME 1GM/NS 0.9% 50 ML 50 ML IV SCH ×2 (02:00→14:06)
--- NOTE | 2020-06-23 02:47 | Progress Note ---
DATE: 06/22/2020 Medicine Progress Note SUBJECTIVE: The patient doing well today with no complaints. PHYSICAL EXAMINATION: VITAL SIGNS: Temperature 98, pulse 85, respiratory rate 16, blood pressure 129/84, pulse ox 100% on room air. GENERAL: No acute distress. Alert and oriented x3. Cooperative on exam. PULMONARY: Clear to auscultation bilaterally. No wheezing, rales, or rhonchi. No crackles appreciated. CARDIOVASCULAR: Positive S1 and S2. No murmurs, rubs, or gallops appreciated. ABDOMEN: Soft, nondistended, nontender to palpation. Bowel sounds present. MUSCULOSKELETAL: Strength is 5/5 throughout. SKIN: Intact, warm to touch. Good cap refill. LABORATORY DATA: Show white count 5.4, hemoglobin 10, hematocrit 31, platelets of 199. Chemistry; sodium 137, potassium 3.7, chloride 108, bicarb 20, anion gap , BUN is 11, creatinine 0.59, glucose is 98. LFTs are downtrending. Total bilirubin is 1.2, albumin 2.9. Coronavirus not detected. Hepatitis panel pending. MICROBIOLOGY: Blood cultures, no growth. Urine cultures are pending. IMAGING: MRCP found to be normal. IMPRESSION: 1. Acute pyelonephritis with underlying urinary tract infection. 2. Elevated transaminases of unknown etiology. 3. Electrolyte abnormalities. 4. Recent status post lower extremity tibia-fibula open reduction and internal fixation. 5. Vaginosis. PLAN: In terms of the pyelonephritis, continue with IV antibiotics. Pending cultures. LFTs are downtrending. GI has been consulted. MRCP found to be negative. Repeat labs in the morning. Continue with Lovenox for DVT prophylaxis. As for her vaginosis, I spoke with FLOUR MIXER HELPER. The patient can follow up as an outpatient in her office for potential drainage at a later date. She is otherwise doing well with no complaints. She is stable. MD LINDA Urias/MOUNAL /[id number]
[2020-06-23 07:11] LABS: ALANINE AMINOTRANSFERASE 258 IU/L (0-55); ALKALINE PHOSPHATASE 193 IU/L (40-150); ANION GAP 12.5 mmol/L (8-16); BLOOD UREA NITROGEN 9 mg/dL (7-26); BUN/CREATININE RATIO 15 (6-25); CALCIUM 8.4 mg/dL (8.4-10.2); CARBON DIOXIDE 23 mmol/L (22-29); CHLORIDE 107 mmol/L (98-107); CREATININE, SERUM 0.62 mg/dL (0.57-1.11); EST GLOMERULAR FILTRATION RATE > 60 ML/MIN (60-); GLUCOSE 90 mg/dL (74-118); POTASSIUM 3.5 mmol/L (3.5-5.1); SODIUM 139 mmol/L (136-145)
[2020-06-23 07:47] LABS: FERRITIN 193.27 ng/mL (4.63-204.00)
[2020-06-23 08:50] VITALS: BP 136/80
[2020-06-23 08:59] LABS: BASOPHILS % 0.5 % (0.0-1.0); EOSINOPHILS # (AUTO) 0.7 (0.0-0.4); EOSINOPHILS % 12.2 % (0.0-6.0); HEMATOCRIT 32.1 % (34.2-44.1); HEMOGLOBIN 10.1 g/dL (12.0-16.0); LYMPHOCYTES # (AUTO) 1.8 (1.0-3.2); LYMPHOCYTES % 29.4 % (18.0-39.1); MEAN CORPUSCULAR HEMOGLOBIN 28.1 pg (28-32); MEAN CORPUSCULAR HGB CONC 31.5 g/dL (31-35); MEAN CORPUSCULAR VOLUME 89.2 fL (81-99); MONOCYTES # (AUTO) 0.7 (0.2-0.8); NEUTROPHILS # (AUTO) 2.7 (2.1-6.9); NEUTROPHILS % 45.2 % (38.7-80.0); PLATELET COUNT 255 x10e3/uL (140-360); RED CELL DISTRIBUTION WIDTH 13.8 % (11.7-14.4)
[2020-06-23] MEDS ORDERED: BACITRACIN ZINC 15 GM OINT TOP SCH (09:00)
[2020-06-23 09:04] VITALS: BP 136/80
[2020-06-23 12:00] VITALS: BP 127/80
[2020-06-23] MEDS ORDERED: CEFDINIR300 MG PO (14:10)
[2020-06-23 16:18] VITALS: BP 139/92
--- NOTE | 2020-06-24 10:34 | Discharge Summary ---
FINAL DISCHARGE DIAGNOSES: 1. Acute pyelonephritis with underlying urinary tract infection. 2. Elevated transaminases - improved. 3. Electrolyte abnormalities. 4. Recent status post right lower extremity tibia-fibula open reduction internal fixation. 5. Vaginal cyst-outpatient followup with for a vaginal cyst drainage. INVERTED BLOCK OPERATOR: CASSIA. PHYSICAL EXAMINATION: VITAL SIGNS: Temperature is 98.3, pulse 77, respiratory rate 16, blood pressure 139/92, pulse ox 100% on room air. LABORATORY DATA: Show white count 5.9, hemoglobin 10, hematocrit 32, and platelets of 255. Chemistry; sodium 139, potassium 3.5, chloride 107, bicarb 23, anion gap of 12, BUN is 9, creatinine 0.62, and glucose is 90. Hemoglobin A1c 4.9, calcium 8.4. Iron saturation was 29%, ferritin was 193. LFTs down trended to the AST 74, total bilirubin 0.7, ALT 250, alkaline phosphatase 193, total protein is 5.9, albumin was 3. Lipase level was 33. Vitamin B12 1428. Urinalysis noted. Serology; Coronavirus nondetected. Hepatitis panel was negative. Microbiology; urine cultures were found to be a contaminant with lactobacillus . Blood cultures were negative x2 greater than 48 hours. IMAGING STUDIES: Gallbladder ultrasound normal. Abdominal ultrasound, CT abdomen and pelvis shows no acute intraabdominal identified. 1.7 x 1 cm cystic hypodense structure in this central lower pelvis. This was possible urethral diverticulum vaginal wall cyst or any other LAND SURVEYING PARTY CHIEF issue. LAND SURVEYING PARTY CHIEF was consulted, recommended outpatient followup in the office. MRCP is found to be unremarkable. HOSPITAL COURSE: This is a 45-year-old female, comes into the ED with flank pain and underlying dysuria. The patient was being treated as an outpatient with oral antibiotics for underlying urinary tract infection. The patient presented to our emergency room for further evaluation and management. While here, she was afebrile, normotensive with no issues. Her urine culture was found to be a contaminant. Blood cultures were found to be negative. She maintained on broad-spectrum IV antibiotic therapy. She was discharged on oral antibiotic as well. She improved with antibiotics that was provided to her here in the hospital stay. It could be that she has some due to the fact that she was on antibiotics prior to the hospitalization. She improved with oral antibiotic therapy, here with no more flank pain. She was afebrile, normotensive. She did have elevated LFTs prompting GI consultation. Imaging studies; gallbladder ultrasound and MRCP was found to be negative. It is felt the patient likely had a gallstone that she passed through, and now her LFTs are down trending. She needs outpatient followup with GI for further management and care. As for her vaginal cyst, LAND SURVEYING PARTY CHIEF was consulted. This was found on imaging studies. LAND SURVEYING PARTY CHIEF recommended outpatient followup in their office for vaginal cyst drainage and further management and care. She has been cleared for discharge by all consultants. The patient was back to normal baseline. The patient also had a recent right lower extremity ORIF performed by Orthopedics. She was not on any anticoagulation. I offered her a prescription for Eliquis and a free Eliquis card was provided to her. I discussed with her that her risk for DVT is high in the fact that she was not able to ambulate for more than six weeks now. She states that she will follow up with orthopedic physician despite that. I did provide her a prescription if she was interested in purchasing a free card provided to her. Her risk for DVT is very high. Consider the fact that she is nonambulatory for a number of weeks now. She will consult with Orthopedic physician as an outpatient this Monday as what she reports to me. On the day of discharge, vital signs were stable. Labs reviewed and stable. The patient was seen, evaluate and examined by me thoroughly on the day of discharge. No other complaints. The patient verbalized understanding and agrees to plan of care to follow up as an outpatient with primary care physician in 1 week and LAND SURVEYING PARTY CHIEF and GI in about 2 weeks' time. MEDICATIONS: See med reconciliation form. DISPOSITION: Stable. DIET: Heart healthy. In the event of any worsening symptoms, the patient was advised to come back to the ED for further evaluation. Discharge summary took greater than 35 minutes. MD LINDA Urias/CELESTINA /[id number]
== END 2020-06-23 16:35 | disposition home or self-care (01) | DRG 690 ==
LOC: ER 11:38 → ERHOLD 14:52 → MED/SURG 17:30
PROVIDERS: ADMIT Internal Medicine; ATTEND Internal Medicine
DX: N10 Acute pyelonephritis (principal); E87.8 Other disorders of electrolyte and fluid balance, not elsewhere classified; N89.8 Other specified noninflammatory disorders of vagina; Z11.59 Encounter for screening for other viral diseases; R94.5 Abnormal results of liver function studies; J45.909 Unspecified asthma, uncomplicated
CPT/HCPCS: 36415; 74177; 74183; 76705; 80053; 81001; 81025; 82150; 82550; 82553; 82607; 82728; 82746; 83036; 83540; 83605; 83690; 84466; 84484; 85025; 85045; 87040; 87086; 96361; 99251; 99284; J0692; J0696; J1650; J2270; J2405; J7030; Q9967